=== PATIENT | female | born 2000 | race Caucasian/White ===

== ENCOUNTER 2023-12-02 12:43 | Day surgery (SDC) | payer OTHER ==
[2023-12-02 13:49] VITALS: BMI 48.4
== END 2023-12-02 14:23 | disposition home or self-care (01) ==
LOC: CSHLD/OP 12:43
PROVIDERS: ATTEND Family Medicine
DX: O36.8130 Decreased fetal movements, third trimester, not applicable or unspecified (principal); O99.213 Obesity complicating pregnancy, third trimester; O24.419 Gestational diabetes mellitus in pregnancy, unspecified control; O99.343 Other mental disorders complicating pregnancy, third trimester; F41.9 Anxiety disorder, unspecified; F32.A Depression, unspecified; Z79.82 Long term (current) use of aspirin; Z3A.37 37 weeks gestation of pregnancy; Z79.899 Other long term (current) drug therapy
CPT/HCPCS: 59025; 99282

== ENCOUNTER 2023-12-12 19:08 | Inpatient (IN) | payer OTHER ==
[2023-12-12] MEDS ORDERED: hydrALAZINE 20 MG/ML VIAL SLOW IVP PRN (19:22)
[2023-12-12 19:39] VITALS: BMI 48.6
[2023-12-12] MEDS ORDERED: Misoprostol 200 MCG TAB PR PRN (20:02)
[2023-12-12] MEDS ORDERED: Ibuprofen 800 MG TAB PO PRN (20:02)
[2023-12-12] MEDS ORDERED: Carboprost 250 MCG/ML AMP IM PRN (20:02)
[2023-12-12] MEDS ORDERED: Diphenoxylate HCl/Atropine Tablet PO PRN (20:02)
[2023-12-12] MEDS ORDERED: Methylergonovine 0.2 MG/ML VIAL IM PRN (20:02)
[2023-12-12] MEDS ORDERED: Tranexamic Acid 1,000 MG/10 ML VIAL IVP PRN (20:02)
[2023-12-12] MEDS ORDERED: Lidocaine 1% (PF) 30 ML VIAL SC PRN (20:02)
[2023-12-12] MEDS ORDERED: Promethazine HCl 25 MG/ML VIAL IM PRN (20:02)
[2023-12-12] MEDS ORDERED: Ondansetron PF 4 MG/2 ML Vial IVP PRN (20:02)
[2023-12-12] MEDS ORDERED: Acetaminophen 500 MG TAB PO PRN (20:02)
[2023-12-12] MEDS ORDERED: Lactated Ringer's 1,000 ML IV SCH (20:15)
[2023-12-12 20:28] LABS: Hematocrit 34.8 % (34.9-44.5); Hemoglobin 11.3 g/dL (12.0-15.5); Mean Corpuscular HGB CONC 32.5 g/dL (32.0-36.0); Mean Corpuscular Hemoglobin 29.6 pg (27.0-33.0); Mean Corpuscular Volume 91.1 fL (81.6-98.3); Mean Platelet Volume 11.6 fL (7.4-10.4); Platelet Count 245 10x3/uL (150-450); RBC Distribution Width 12.6 % (11.5-14.5); Red Blood Cell (RBC) Count 3.82 10x6/uL (3.90-5.03); White Blood Cell (WBC) Count 11.6 10x3/uL (3.5-10.5)
[2023-12-12 21:49] LABS: Syphilis Antibody Nonreactive (Nonreactive); Syphilis Antibody Index 0.06 S/CO (<1.00 Non-Reactive)
[2023-12-12 21:51] LABS: HBsAg Index 0.25 S/CO (0-0.99); Hep B Surf Ag - L&D Non-Reactive S/CO (NonReactive)
[2023-12-13] MEDS: Oxytocin 30 units/NS 500 ML 500 ML IV SCH ×2 (01:53→10:50)
[2023-12-13] MEDS: fentaNYL/Ropivacaine Epidural 100 ML ONE (03:06)
[2023-12-13] MEDS ORDERED: Moisturizing Cream (Eucerin) 113 GM JAR TOP PRN (03:23)
[2023-12-13] MEDS ORDERED: Naloxone HCl 0.4 mg/ml Vial IVP PRN ×2 (03:23)
[2023-12-13] MEDS ORDERED: diphenhydrAMINE 50 MG/ML VIAL IVP PRN (03:23)
[2023-12-13] MEDS ORDERED: Lactated Ringer's 500 ML IV PRN (03:23)
[2023-12-13] MEDS ORDERED: Ondansetron PF 4 MG/2 ML Vial IVP PRN (03:23)
[2023-12-13] MEDS ORDERED: Promethazine HCl 25 MG/ML VIAL IM PRN (03:23)
[2023-12-13] MEDS ORDERED: Acetaminophen 325 MG TAB PO PRN (03:23)
[2023-12-13] MEDS ORDERED: ePHEDrine Sulfate 50 MG/10 ML VIAL SLOW IVP PRN (03:23)
[2023-12-13] MEDS ORDERED: Communication Order-Pharmacy FS SCH (03:30)
[2023-12-13] MEDS ORDERED: fentaNYL 2 mcg/Ropivacaine 0.2% Epidural 100 ML CADD EPIDURAL SCH (03:30)
[2023-12-13] MEDS ORDERED: Bisacodyl 10 MG SUPP PR PRN (10:09)
[2023-12-13] MEDS ORDERED: Lanolin Ointment 7 GM TUBE TOP PRN (10:09)
[2023-12-13] MEDS ORDERED: hydrALAZINE 20 MG/ML VIAL SLOW IVP PRN (10:09)
[2023-12-13] MEDS ORDERED: Preparation H Ointment 28 GM TUBE PR PRN (10:09)
[2023-12-13] MEDS ORDERED: diphenhydrAMINE 25 MG CAP PO PRN (10:09)
[2023-12-13] MEDS ORDERED: Milk Of Magnesia 30 ML UDCUP PO PRN (10:09)
[2023-12-13] MEDS: Ibuprofen 800 MG TAB PO SCH (13:49)
[2023-12-13] MEDS: Benzocaine-Menthol 82.5 ML CAN TOP PRN (13:50)
[2023-12-13] MEDS: Boostrix 0.5 ML (Tdap) VIAL (>/=7 yrs of age) IM ONE (19:12)
[2023-12-13] MEDS: Ferrous Sulfate 325 MG TAB PO SCH (19:12)
[2023-12-13] MEDS: Docusate 100 MG CAP PO SCH (20:59)
[2023-12-15 07:38] VITALS: BP 101/50; TEMP 97.5
== END 2023-12-15 16:10 | disposition home or self-care (01) | DRG 807 ==
LOC: CSHLD/OP 19:08 → CSHLD 20:02 → CSHPP 12-13 13:32
PROVIDERS: ADMIT Family Medicine; ATTEND Family Medicine
PROC: 10E0XZZ Delivery of Products of Conception, External Approach (ICD-10-PCS; principal; 2023-12-13)
PROC: 0HQ9XZZ Repair Perineum Skin, External Approach (ICD-10-PCS; 2023-12-13)
PROC: 0UQMXZZ Repair Vulva, External Approach (ICD-10-PCS; 2023-12-13)
DX: O24.420 Gestational diabetes mellitus in childbirth, diet controlled (principal); Z37.0 Single live birth; Z3A.38 38 weeks gestation of pregnancy; O99.334 Smoking (tobacco) complicating childbirth; F17.210 Nicotine dependence, cigarettes, uncomplicated; E66.9 Obesity, unspecified; O99.214 Obesity complicating childbirth; O99.344 Other mental disorders complicating childbirth; F32.9 Major depressive disorder, single episode, unspecified; F41.9 Anxiety disorder, unspecified; O71.82 Other specified trauma to perineum and vulva; O70.0 First degree perineal laceration during delivery
CPT/HCPCS: 36415; 51702; 82951; 85027; 86780; 86850; 86900; 86901; 87340; 99285; J2590